=== PATIENT | female | born 1980 | race Caucasian/White ===

== ENCOUNTER 2019-10-16 10:31 | Outpatient (CLI) | payer BC, SELFPAY ==
--- NOTE | ~2019-10-16 | XR_ITS ---
EXAMINATION: XR heel RT min 2V DATE: 10/16/2019 11:24 INDICATION: Right heel pain. Plantar fibromatosis. Heel spur. TECHNIQUE: 2 views of right calcaneus were obtained. COMPARISON: None. FINDINGS: Bone alignment is normal. No fracture. Joint spaces are normal. There are enthesophytes at the posterior and plantar aspects of calcaneal tuberosity. IMPRESSION: 1. No fracture. Reviewed, dictated and finalized at location A. IMPRESSION: 1. No fracture.
== END 2019-10-16 10:32 | disposition home or self-care (01) ==
LOC: ANHIMG 10:44
PROVIDERS: PCP Emergency Medicine; Visit Provider Emergency Medicine
DX: M72.2 Plantar fascial fibromatosis (principal)
CPT/HCPCS: 73650